=== PATIENT | female | born 1950 | race Caucasian/White ===

== ENCOUNTER 2017-07-29 17:40 | Emergency (ER) | payer OTHER, MEDICARE ==
[~2017-07-29] VITALS: Ht 160 cm; Wt 88.3 kg
[~2017-07-29 17:40] MED LIST: ADVAIR 250/501 DISK IH; ASCORBIC ACID500 M3 PO; ATIVAN1 MG PO; CELEBREX100 MG PO; COUMADIN7.5 MG PO; CRESTOR5 MG PO; CYCLOBENZAPRINE5 MG PO; EFFEXOR XR150 MG PO; FOLIC ACID1 MG PO; GLIPIZIDE ER2.5 MG PO; GLUCOPHAGE1000 MG PO; IBUPROFEN100 M2 PO; LEVEMIR FL100 UNITS/ SC; NEURONTIN100 MG PO; OXYCODONE HCL10 MG PO; PRILOSEC40 MG PO; PRINIVIL20 MG PO; PROTONIX40 MG PO; REQUIP1 MG PO; ROXICODONE5 MG PO; SENNA-TIME S T1 EACH PO; THERAGRAN1 TABLET PO; VENLAFAXINE HC150 M1 PO; WELLBUTRIN100 MG PO
[2017-07-29 18:41] LABS: HEMATOCRIT 38.6 % (36.0-46.0); MCH 30.2 PG (29.0-34.0); MCHC 34.5 G/DL (30.0-36.0); MCV 87.7 FL (83-99); MEAN PLAT.VOLUME 9.1 uM^3 (9.5-12.4); PLATELET COUNT 246 K/uL (156-360); RBC DIS.WIDTH-CV 12.7 % (11.8-14.6); RBC DIS.WIDTH-SD 40.5 % (39-53); WHITE BLOOD COUNT 6.2 K/uL (4.1-10.2)
[2017-07-29 18:52] LABS: CHLORIDE 109 mEq/L (99-109); POTASSIUM 4.3 mEq/L (3.7-5.4); SODIUM 143 mEq/L (136-147)
[2017-07-29 18:54] LABS: GLUCOSE 291 mg/dL (70-99)
[2017-07-29 18:55] LABS: ANION GAP 10 MEQ/L (2-14)
[2017-07-29 18:58] LABS: GFR ESTIMATE (CALCULATED) > 59 mL/min/
[2017-07-29 18:59] LABS: UREA NITROGEN (BUN) 17 mg/dL (9-23)
[2017-07-29 19:45] LABS: TROP-I INTERPRETATION NEGATIVE; TROPONIN-I < 0.01 ng/mL (0.0-0.30)
[2017-07-29 21:14] VITALS: BP 149/108
== END 2017-07-29 21:16 | disposition home or self-care (01) ==
LOC: EME 17:40
PROVIDERS: Emergency Medicine
DX: R53.1 Weakness (principal); R06.02 Shortness of breath; K21.9 Gastro-esophageal reflux disease without esophagitis; E78.5 Hyperlipidemia, unspecified; I10 Essential (primary) hypertension; J45.909 Unspecified asthma, uncomplicated; E11.9 Type 2 diabetes mellitus without complications; F41.9 Anxiety disorder, unspecified; F32.9 Major depressive disorder, single episode, unspecified; Z87.891 Personal history of nicotine dependence; Z79.4 Long term (current) use of insulin; Z79.01 Long term (current) use of anticoagulants; Z88.0 Allergy status to penicillin; Z88.8 Allergy status to other drugs, medicaments and biological substances
CPT/HCPCS: 71020; 71275; 80048; 83605; 83880; 84484; 85027; 87040; 87116; 87206; 93005; 99281; 99285

== ENCOUNTER 2018-01-08 21:48 | Inpatient (IN) | payer OTHER, MEDICARE ==
[~2018-01-08] VITALS: Ht 157.5 cm; Wt 88.1 kg
[~2018-01-08 21:48] MED LIST changes: +COUMADIN5 MG PO; -COUMADIN7.5 MG PO; +CRESTOR40 MG PO; -CRESTOR5 MG PO; +CYMBALTA60 MG PO; -GLIPIZIDE ER2.5 MG PO; +GLUCOTROL XL10 MG PO; +KLONOPIN0.5 M1 PO; +LEVEMIR FL100 UNIT/1 SC; -LEVEMIR FL100 UNITS/ SC; +PLAVIX75 MG PO; +ULTRAM50 MG PO
[2018-01-09 10:38] LABS: PTT 32.5 SEC (25-37)
[2018-01-09 10:41] VITALS: BP 161/72
[2018-01-09 16:40] VITALS: BP 130/60
[2018-01-09 20:11] VITALS: BP 135/65
[2018-01-09 23:48] VITALS: BP 140/58
[2018-01-10] VITALS (7 sets, daily range): BP systolic 105–185; BP diastolic 50–84
[2018-01-10 06:15] LABS: HEMATOCRIT 31.5 % (36.0-46.0)
[2018-01-10 06:19] LABS: INTER. NORMALIZED RATIO 1.1
[2018-01-10 06:41] LABS: CHLORIDE 106 MEQ/L (99-109); CREATININE 0.9 MG/DL (0.6-1.3); GFR ESTIMATE (CALCULATED) > 59 mL/min/; GLUCOSE 196 mg/dL (70-99); POTASSIUM 4.9 MEQ/L (3.7-5.4); SODIUM 140 MEQ/L (136-147); UREA NITROGEN (BUN) 19 mg/dL (9-23)
[2018-01-11] VITALS (7 sets, daily range): BP systolic 141–186; BP diastolic 65–81
[2018-01-11 05:47] LABS: HEMATOCRIT 33.5 % (36.0-46.0); HEMOGLOBIN 10.6 G/DL (11.9-15.5); MCV 88.6 FL (83-99)
[2018-01-11 05:52] LABS: INTER. NORMALIZED RATIO 1.3
[2018-01-11] MEDS ORDERED: BENADRYL25 MG PO (09:19)
[2018-01-11] MEDS ORDERED: CELECOXIB200 MG PO (09:20)
[2018-01-11] MEDS ORDERED: BISACODYL5 MG PO (09:24)
[2018-01-11] MEDS ORDERED: OXYCODONE HCL5 MG PO (09:25)
[2018-01-11 11:10] LABS: APPEARANCE CLEAR ((CLEAR)); BILIRUBIN NEGATIVE; BLOOD NEGATIVE; COLOR YELLOW ((YELLOW)); GLUCOSE (STRIP) >=500; KETONES NEGATIVE; LEUKOCYTES NEGATIVE; NITRITE NEGATIVE; PROTEIN (STRIP) NEGATIVE; SPECIFIC GRAVITY 1.011 (1.000-1.030); UCUL ADDED? NO; UROBILINOGEN 0.2 MG/DL (0.2-1.0)
[2018-01-11 13:06] LABS: HEMATOCRIT 33.7 % (36.0-46.0); HEMOGLOBIN 10.7 G/DL (11.9-15.5); MCH 28.4 PG (29.0-34.0); MCHC 31.8 G/DL (30.0-36.0); MCV 89.4 FL (83-99); PLATELET COUNT 189 K/uL (156-360); RBC DIS.WIDTH-CV 13.5 % (11.8-14.6); RBC DIS.WIDTH-SD 43.6 % (39-53); RED BLOOD COUNT 3.77 M/uL (3.80-5.20); WHITE BLOOD COUNT 6.8 K/uL (4.1-10.2)
[2018-01-11 13:07] LABS: BASOPHIL (%) 0.1 % (0-1); EOSINOPHIL (%) 0.4 % (0-5); IMMATURE GRANULOCYTE (%) 0.4 % (0.0-0.7); LYMPHOCYTE (%) 10.6 % (15-42); LYMPHOCYTE COUNT 0.7 K/uL (1.0-2.8); MONOCYTE (%) 11.4 % (3-12); MONOCYTE COUNT 0.8 K/uL (0-0.8); NEUTROPHIL (%) 77.1 % (45-76); NEUTROPHIL COUNT 5.3 K/uL (1.8-6.4)
[2018-01-11 13:27] LABS: CHLORIDE 103 MEQ/L (99-109); CREATININE 0.8 MG/DL (0.6-1.3); GFR ESTIMATE (CALCULATED) > 59 mL/min/; GLUCOSE 236 mg/dL (70-99); POTASSIUM 4.7 MEQ/L (3.7-5.4); SODIUM 136 MEQ/L (136-147); UREA NITROGEN (BUN) 13 mg/dL (9-23)
[2018-01-12 04:33] VITALS: BP 177/74
[2018-01-12 06:03] LABS: INTER. NORMALIZED RATIO 1.6
[2018-01-12 08:19] VITALS: BP 174/77
[2018-01-12] MEDS ORDERED: GABAPENTIN100 MG PO (11:44)
[2018-01-12] MEDS ORDERED: AMLODIPINE BESYL5 MG PO (11:44)
[2018-01-12 12:33] VITALS: BP 180/79
== END 2018-01-12 16:05 | DRG 470 ==
LOC: ENRESERV 21:48 → 3WEST 01-09 09:40 → 2SOUTH 01-09 09:40 → 3WEST 01-09 16:23
PROVIDERS: Hospitalist; Orthopaedic Surgery
PROC: 0SRC0J9 Replacement of Right Knee Joint with Synthetic Substitute, Cemented, Open Approach (ICD-10-PCS; principal; 2018-01-09)
DX: M17.11 Unilateral primary osteoarthritis, right knee (principal); I10 Essential (primary) hypertension; I65.21 Occlusion and stenosis of right carotid artery; E11.51 Type 2 diabetes mellitus with diabetic peripheral angiopathy without gangrene; E11.42 Type 2 diabetes mellitus with diabetic polyneuropathy; I45.2 Bifascicular block; E66.9 Obesity, unspecified; Z68.35 Body mass index [BMI] 35.0-35.9, adult; G25.81 Restless legs syndrome; G47.30 Sleep apnea, unspecified; M48.061 Spinal stenosis, lumbar region without neurogenic claudication; J45.909 Unspecified asthma, uncomplicated; K21.9 Gastro-esophageal reflux disease without esophagitis; F32.9 Major depressive disorder, single episode, unspecified; F41.9 Anxiety disorder, unspecified; Z86.718 Personal history of other venous thrombosis and embolism; Z86.73 Personal history of transient ischemic attack (TIA), and cerebral infarction without residual deficits; Z96.652 Presence of left artificial knee joint; Z87.891 Personal history of nicotine dependence
CPT/HCPCS: 70450; 71045; 80048; 81003; 82948; 83605; 85014; 85018; 85025; 85610; 85730; 87040; 97530 GO; C1713; J0690; J1815; J1885; J2250; J2405; J2795; J7030; J7050

== ENCOUNTER 2018-02-09 14:12 | Inpatient (IN) | payer OTHER, MEDICARE ==
[~2018-02-09] VITALS: Ht 157.5 cm; Wt 82.3 kg
[~2018-02-09 14:12] MED LIST changes: +AMLODIPINE BESYL5 MG PO; +BENADRYL25 MG PO; +BISACODYL5 MG PO; +CELECOXIB200 MG PO; +COUMADIN1 MG PO; -COUMADIN5 MG PO; +GABAPENTIN100 MG PO; +OXYCODONE HCL5 MG PO
[2018-02-09 14:59] LABS: HEMATOCRIT 39.4 % (36.0-46.0); MCH 28.5 PG (29.0-34.0); MCHC 33.8 G/DL (30.0-36.0); RBC DIS.WIDTH-CV 13.6 % (11.8-14.6); RBC DIS.WIDTH-SD 41.5 % (39-53)
[2018-02-09 15:00] LABS: HEMOGLOBIN 13.3 G/DL (11.9-15.5); MCV 84.5 FL (83-99); PLATELET COUNT 304 K/uL (156-360); RED BLOOD COUNT 4.66 M/uL (3.80-5.20)
[2018-02-09 15:24] LABS: ALBUMIN 4.9 G/DL (3.2-4.8); ALKALINE PHOSPHATASE 87 IU/L (3-129); ALT (GPT) 13 IU/L (3-49); AST (GOT) 14 IU/L (2-34); CHLORIDE 102 MEQ/L (99-109); CREATININE 1.4 MG/DL (0.6-1.3); GFR ESTIMATE (CALCULATED) 40 mL/min/; GLUCOSE 165 mg/dL (70-99); LIPASE 69 U/L (1.0-51.0); POTASSIUM 4.5 MEQ/L (3.7-5.4); SODIUM 138 MEQ/L (136-147); TOTAL BILIRUBIN 0.4 MG/DL (0.0-1.0); TOTAL PROTEIN 7.8 G/DL (6.4-8.3); UREA NITROGEN (BUN) 27 mg/dL (9-23)
[2018-02-09 16:03] LABS: APPEARANCE SL.HAZY ((CLEAR)); BILIRUBIN NEGATIVE; BLOOD NEGATIVE; COLOR YELLOW ((YELLOW)); GLUCOSE (STRIP) NEGATIVE; KETONES NEGATIVE; LEUKOCYTES MODERATE; NITRITE NEGATIVE; PROTEIN (STRIP) 100; SPECIFIC GRAVITY 1.025 (1.000-1.030); UROBILINOGEN 0.2 MG/DL (0.2-1.0)
[2018-02-09 16:29] LABS: BACTERIA NONE SEEN /HPF; EPITHELIAL CELLS 1+ /HPF; HYALINE CASTS 0-5 /LPF; MUCUS TRACE /LPF; RED BLOOD CELLS 0-5 /HPF (0-5); UCUL ADDED? YES
[2018-02-09 20:44] LABS: HEMATOCRIT 35.9 % (36.0-46.0); HEMOGLOBIN 11.9 G/DL (11.9-15.5); MCH 28.3 PG (29.0-34.0); MCHC 33.1 G/DL (30.0-36.0); MCV 85.5 FL (83-99); PLATELET COUNT 227 K/uL (156-360); RBC DIS.WIDTH-CV 13.5 % (11.8-14.6); RBC DIS.WIDTH-SD 41.8 % (39-53); WHITE BLOOD COUNT 5.7 K/uL (4.1-10.2)
[2018-02-09] MEDS ORDERED: ULTRAM50 MG PO (20:50)
[2018-02-09 21:20] LABS: INTER. NORMALIZED RATIO 1.4
[2018-02-09 21:52] VITALS: BP 147/65
[2018-02-10 04:15] VITALS: BP 116/57
[2018-02-10 06:09] LABS: INTER. NORMALIZED RATIO 1.6
[2018-02-10 06:19] LABS: CHLORIDE 107 MEQ/L (99-109); CREATININE 1.2 MG/DL (0.6-1.3); GFR ESTIMATE (CALCULATED) 47 mL/min/; GLUCOSE 143 mg/dL (70-99); SODIUM 141 MEQ/L (136-147); UREA NITROGEN (BUN) 29 mg/dL (9-23)
[2018-02-10 08:00] VITALS: BP 152/69
[2018-02-10 11:38] VITALS: BP 137/68
[2018-02-10 14:47] VITALS: BP 150/67
[2018-02-10 21:00] VITALS: BP 164/72
[2018-02-11 00:04] VITALS: BP 175/77
[2018-02-11 05:46] LABS: BASOPHIL (%) 0.3 % (0-1); EOSINOPHIL (%) 3.7 % (0-5); EOSINOPHIL COUNT 0.1 K/uL (0-0.3); HEMATOCRIT 32.2 % (36.0-46.0); HEMOGLOBIN 10.2 G/DL (11.9-15.5); IMMATURE GRANULOCYTE (%) 0.3 % (0.0-0.7); LYMPHOCYTE (%) 35.7 % (15-42); LYMPHOCYTE COUNT 1.2 K/uL (1.0-2.8); MCH 27.8 PG (29.0-34.0); MCHC 31.7 G/DL (30.0-36.0); MCV 87.7 FL (83-99); MONOCYTE (%) 12.2 % (3-12); MONOCYTE COUNT 0.4 K/uL (0-0.8); NEUTROPHIL (%) 47.8 % (45-76); NEUTROPHIL COUNT 1.6 K/uL (1.8-6.4); PLATELET COUNT 188 K/uL (156-360); RBC DIS.WIDTH-CV 13.4 % (11.8-14.6); RBC DIS.WIDTH-SD 43.2 % (39-53); RED BLOOD COUNT 3.67 M/uL (3.80-5.20); WHITE BLOOD COUNT 3.3 K/uL (4.1-10.2)
[2018-02-11 06:15] LABS: ALBUMIN 3.7 G/DL (3.2-4.8); ALKALINE PHOSPHATASE 58 IU/L (3-129); ALT (GPT) 12 IU/L (3-49); AST (GOT) 15 IU/L (2-34); CHLORIDE 113 MEQ/L (99-109); GFR ESTIMATE (CALCULATED) 58 mL/min/; POTASSIUM 4.5 MEQ/L (3.7-5.4); SODIUM 145 MEQ/L (136-147); UREA NITROGEN (BUN) 18 mg/dL (9-23)
[2018-02-11 06:21] LABS: GLUCOSE 101 mg/dL (70-99); TOTAL BILIRUBIN 0.3 MG/DL (0.0-1.0); TOTAL PROTEIN 5.5 G/DL (6.4-8.3)
[2018-02-11 11:42] VITALS: BP 153/69
[2018-02-11 16:15] VITALS: BP 140/63
[2018-02-11 19:55] VITALS: BP 135/63
[2018-02-12 00:26] VITALS: BP 161/70
[2018-02-12 04:19] VITALS: BP 130/70
[2018-02-12 05:50] LABS: BASOPHIL (%) 0.7 % (0-1); EOSINOPHIL COUNT 0.1 K/uL (0-0.3); HEMATOCRIT 33.3 % (36.0-46.0); HEMOGLOBIN 10.7 G/DL (11.9-15.5); LYMPHOCYTE (%) 29.7 % (15-42); LYMPHOCYTE COUNT 0.9 K/uL (1.0-2.8); MCH 27.6 PG (29.0-34.0); MCHC 32.1 G/DL (30.0-36.0); MONOCYTE (%) 11.9 % (3-12); MONOCYTE COUNT 0.4 K/uL (0-0.8); NEUTROPHIL (%) 55.7 % (45-76); NEUTROPHIL COUNT 1.6 K/uL (1.8-6.4); PLATELET COUNT 192 K/uL (156-360); RBC DIS.WIDTH-CV 13.3 % (11.8-14.6); RBC DIS.WIDTH-SD 41.6 % (39-53); RED BLOOD COUNT 3.87 M/uL (3.80-5.20); WHITE BLOOD COUNT 2.9 K/uL (4.1-10.2)
[2018-02-12 06:22] LABS: INTER. NORMALIZED RATIO 2.4
[2018-02-12 06:30] LABS: ALKALINE PHOSPHATASE 70 IU/L (3-129); CHLORIDE 109 MEQ/L (99-109); CREATININE 0.8 MG/DL (0.6-1.3); GFR ESTIMATE (CALCULATED) > 59 mL/min/; GLUCOSE 117 mg/dL (70-99); LIPASE 38 U/L (1.0-51.0); POTASSIUM 3.9 MEQ/L (3.7-5.4); SODIUM 143 MEQ/L (136-147); TOTAL BILIRUBIN 0.3 MG/DL (0.0-1.0); TOTAL PROTEIN 5.8 G/DL (6.4-8.3); UREA NITROGEN (BUN) 10 mg/dL (9-23)
[2018-02-12 06:31] LABS: ALT (GPT) 23 IU/L (3-49); AST (GOT) 28 IU/L (2-34)
[2018-02-12 08:17] VITALS: BP 178/78
[2018-02-12 12:26] VITALS: BP 146/69
[2018-02-12] MEDS ORDERED: CIPRO500 MG PO (14:46)
[2018-02-12] MEDS ORDERED: ZOFRAN4 MG PO (14:46)
[2018-02-12] MEDS ORDERED: FLAGYL500 MG PO (14:47)
== END 2018-02-12 15:49 | disposition home or self-care (01) | DRG 392 ==
LOC: EME 14:12 → EDOF 19:48 → ENRESERV 19:55 → 4SOUTH 21:36
PROVIDERS: Hospitalist; Internal Medicine; Internal Medicine Gastroenterology
DX: K52.9 Noninfective gastroenteritis and colitis, unspecified (principal); N28.9 Disorder of kidney and ureter, unspecified; E86.0 Dehydration; E86.1 Hypovolemia; I95.9 Hypotension, unspecified; J45.909 Unspecified asthma, uncomplicated; E78.5 Hyperlipidemia, unspecified; G25.81 Restless legs syndrome; G47.30 Sleep apnea, unspecified; I10 Essential (primary) hypertension; F32.9 Major depressive disorder, single episode, unspecified; E11.9 Type 2 diabetes mellitus without complications; G89.29 Other chronic pain; M54.5 Low back pain; D64.9 Anemia, unspecified; I65.21 Occlusion and stenosis of right carotid artery; I73.9 Peripheral vascular disease, unspecified; Z96.653 Presence of artificial knee joint, bilateral; Z95.0 Presence of cardiac pacemaker; Z86.73 Personal history of transient ischemic attack (TIA), and cerebral infarction without residual deficits; Z95.810 Presence of automatic (implantable) cardiac defibrillator; Z98.1 Arthrodesis status; Z79.01 Long term (current) use of anticoagulants; Z79.02 Long term (current) use of antithrombotics/antiplatelets; Z87.891 Personal history of nicotine dependence; Z86.718 Personal history of other venous thrombosis and embolism; Z86.010 Personal history of colon polyps
CPT/HCPCS: 74177; 80048; 80053; 81003; 82272; 82565; 83690; 84520; 85025; 85027; 85610; 87086; 87493; 99281; 99285; G0378; J0744; J1650; J2405; J2543; J7030; J7040; S0028; S0030

== ENCOUNTER → 2018-03-05 | Outpatient (CLI) | payer OTHER, MEDICARE ==
[~2018-03-05] MED LIST changes: +CIPRO500 MG PO; +FLAGYL500 MG PO; +ZOFRAN4 MG PO
[2018-03-05 09:38] LABS: INTER. NORMALIZED RATIO 1.1
== END | disposition home or self-care (01) ==
LOC: LAB 08:31
PROVIDERS: Internal Medicine Gastroenterology
DX: Z01.812 Encounter for preprocedural laboratory examination (principal); R10.13 Epigastric pain; D53.9 Nutritional anemia, unspecified; R11.0 Nausea; R19.7 Diarrhea, unspecified
CPT/HCPCS: 85610